=== PATIENT | female | born 1985 | race Caucasian/White ===

== ENCOUNTER 2017-02-18 10:36 | Emergency (ER) | payer MEDICARE, MEDICAID ==
[~2017-02-18 10:36] MED LIST: ALPR1TAB2 PO; RISP4TAB34 PO
== END 2017-02-18 11:21 | disposition left against medical advice (07) ==
LOC: ED 11:05
DX: J02.9 Acute pharyngitis, unspecified (principal); Z53.21 Procedure and treatment not carried out due to patient leaving prior to being seen by health care provider